=== PATIENT | male | born 1980 | race Caucasian/White ===

== ENCOUNTER → 2021-11-25 | Outpatient (CLI) | payer BC | LOC: M SOG 08:53 | PROVIDERS: ATTEND Orthopaedic Surgery Adult Reconstructive Orthopaedic Surgery | DX: M25.561 Pain in right knee (principal) ==

== ENCOUNTER → 2022-05-24 | Outpatient (CLI) | payer BC ==
[2022-05-24 11:14] LABS: HEMATOCRIT 45.7 % (42.0-52.0); HEMOGLOBIN 15.2 g/dl (13.5-17.5); MEAN CORPUSCULAR HEMOGLOBIN 31.7 pg (27.0-33.0); MEAN CORPUSCULAR HGB CONC 33.3 g/dl (32.0-36.5); MEAN CORPUSCULAR VOLUME 95.2 fl (80.0-96.0); PLATELET COUNT, AUTOMATED 329 10^3/uL (150-450); WHITE BLOOD COUNT 9.3 10^3/uL (4.0-10.0)
[2022-05-24 11:51] LABS: HEMOGLOBIN A1c 5.6 %
[2022-05-24 16:09] LABS: ALBUMIN 3.9 GM/DL (3.2-5.2); ALT/SGPT 20 U/L (12-78); BILIRUBIN,TOTAL 0.3 MG/DL (0.2-1.0); BLOOD UREA NITROGEN 13 MG/DL (7-18); CALCIUM LEVEL 9.5 MG/DL (8.5-10.1); CARBON DIOXIDE LEVEL 28 MEQ/L (21-32); CHLORIDE LEVEL 104 MEQ/L (98-107); CHOLESTEROL LEVEL 301 MG/DL (<200); CHOLESTEROL RISK RATIO 8.852 (<5); CREATININE FOR GFR 1.06 MG/DL (0.70-1.30); FREE T4 0.74 NG/DL (0.76-1.46); GLOMERULAR FILTRATION RATE > 60.0 (>60); GLUCOSE, FASTING 119 MG/DL (70-100); HDL CHOLESTEROL 34 MG/DL (>40); LDL CHOLESTEROL 241 MG/DL (<100); NON-HDL-C 267 MG/DL; POTASSIUM SERUM 4.4 MEQ/L (3.5-5.1); SODIUM LEVEL 137 MEQ/L (136-145); TOTAL PROTEIN 7.7 GM/DL (6.4-8.2); TRIGLYCERIDES LEVEL 129 MG/DL (<150)
[2022-05-24 17:02] LABS: TOTAL 25(OH) VITAMIN D 42.8 NG/ML (30.0-100.0)
== END ==
LOC: M PLALAB 08:05
PROVIDERS: ATTEND Physician Assistant
DX: M25.561 Pain in right knee (principal)

== ENCOUNTER → 2022-08-24 | Outpatient (REF) | payer BC ==
[2022-08-24 16:42] LABS: ALBUMIN 3.8 G/DL (3.2-5.2); ALKALINE PHOSPHATASE 70 U/L (46-116); ALT/SGPT 17 U/L (7.0-40); AST/SGOT 18 U/L (<34); BILIRUBIN,TOTAL 0.3 MG/DL (0.3-1.2); BLOOD UREA NITROGEN 14 MG/DL (9-23); CALCIUM LEVEL 9.3 MG/DL (8.5-10.1); CARBON DIOXIDE LEVEL 27 MMOL/L (20-31); CHLORIDE LEVEL 106 MMOL/L (98-107); CHOLESTEROL LEVEL 168 MG/DL (<200); CHOLESTEROL RISK RATIO 4.98 (<5); FREE T4 0.89 NG/DL (0.89-1.76); GLOMERULAR FILTRATION RATE > 60.0 (>60); GLUCOSE, FASTING 92 MG/DL (60-100); HDL CHOLESTEROL 33.7 MG/DL (>40); LDL CHOLESTEROL 119.5 MG/DL (<100); NON-HDL-C 134 MG/DL; POTASSIUM SERUM 4.5 MMOL/L (3.5-5.1); SODIUM LEVEL 142 MMOL/L (136-145); TOTAL PROTEIN 6.9 G/DL (5.7-8.2); TRIGLYCERIDES LEVEL 74 MG/DL (<150)
== END ==
LOC: M SFHCADAM 07:50
PROVIDERS: ATTEND Physician Assistant
DX: R79.89 Other specified abnormal findings of blood chemistry (principal); E78.00 Pure hypercholesterolemia, unspecified

== ENCOUNTER → 2022-11-21 | Outpatient (CLI) | payer BC | LOC: M RAD 09:13 | PROVIDERS: ATTEND Otolaryngology | DX: H73.91 Unspecified disorder of tympanic membrane, right ear (principal) ==